=== PATIENT | male | born 1960 | race African-American/Black ===

== ENCOUNTER 2019-09-11 15:14 | Emergency (ER) | payer OTHER ==
[~2019-09-11] VITALS: Ht 182.9 cm; Wt 90.7 kg
[2019-09-11 15:19] VITALS: BP 137/46
== END 2019-09-11 15:55 | disposition home or self-care (01) ==
LOC: ER 15:14
DX: M79.674 Pain in right toe(s) (principal); F17.210 Nicotine dependence, cigarettes, uncomplicated; Z88.0 Allergy status to penicillin; Z91.013 Allergy to seafood; Z91.018 Allergy to other foods